=== PATIENT | male | born 1990 ===

== ENCOUNTER 2019-02-25 15:20 | Emergency (ER) | payer OTHER ==
[~2019-02-25] VITALS: Ht 175.3 cm; Wt 72.6 kg
== END 2019-02-25 18:07 | disposition home or self-care (01) ==
LOC: ER 15:20
DX: K52.89 Other specified noninfective gastroenteritis and colitis (principal)

== ENCOUNTER 2020-08-15 11:51 | Emergency (ER) | payer OTHER ==
[~2020-08-15] VITALS: Ht 175.3 cm; Wt 72.6 kg
[2020-08-15] MEDS ORDERED: ZITHROMAX TRI-500 MG PO (16:10)
== END 2020-08-15 16:20 | disposition home or self-care (01) ==
LOC: ER 11:51
DX: B34.9 Viral infection, unspecified (principal); Z11.52 Encounter for screening for COVID-19

== ENCOUNTER 2021-08-16 14:28 | Outpatient (CLI) | payer OTHER ==
[~2021-08-16 14:28] MED LIST: ZITHROMAX TRI-500 MG PO
== END 2021-08-16 14:32 | disposition home or self-care (01) ==
LOC: LAB 14:28
PROVIDERS: ATTEND Anesthesiology
DX: Z03.818 Encounter for observation for suspected exposure to other biological agents ruled out (principal); Z20.822 Contact with and (suspected) exposure to COVID-19

== ENCOUNTER 2022-07-14 11:51 | Outpatient (CLI) | payer OTHER | END 2022-07-14 12:00 | disposition home or self-care (01) | LOC: LAB 11:51 | DX: J11.1 Influenza due to unidentified influenza virus with other respiratory manifestations (principal); A49.3 Mycoplasma infection, unspecified site; Z20.822 Contact with and (suspected) exposure to COVID-19 ==